=== PATIENT | female | born 1945 | race Caucasian/White ===

== ENCOUNTER 2020-12-28 20:35 | Emergency (ER) | payer MEDICARE, BC ==
[2020-12-28] MEDS ORDERED: Acetaminophen 325 MG Tab PO ONE (22:07)
[2020-12-28] MEDS ORDERED: Ondansetron 4 MG Tab.DIS PO ONE (22:07)
--- NOTE | 2020-12-28 23:36 | EDM.PDOC ---
ED HPI GENERAL MEDICAL PROBLEM - General Chief Complaint: Upper Extremity Injury/Pain Stated Complaint: HEAD INJURY Time Seen by Provider: 12/28/20 21:53 Source of Information: Reports: Patient, RN Notes Reviewed - History of Present Illness INITIAL COMMENTS - FREE TEXT/NARRATIVE: 75 yr old female lost her balance walking down some bleacher. Fell backward hitting head on hard ground. Husbands states she was "unresponsive for several minutes after fall" Had fairly severe L shoulder pain initially but that is now better. Still does have moderate Wise. Mild nausea, no vomiting. Mild neck discomfort. No back or chest discomfort. Left Shoulder Pain Score (Numeric/FACES): 10 Occipital Head Pain Score (Numeric/FACES): 9 - Related Data Allergies Allergy/AdvReac Type Severity Reaction Status Date / Time codeine Allergy Vomiting Verified 12/28/20 20:53 Home Meds: Home Meds Gabapentin [Neurontin] 600 mg PO BID 12/28/20 [History] Levothyroxine 75 mcg PO DAILY 12/28/20 [History] Metoprolol Tartrate [Lopressor] 25 mg PO Q12HR 12/28/20 [History] Past Medical History Cardiovascular History: Reports: Bypass, High Cholesterol, Hypertension Psychiatric History: Reports: Depression Endocrine/Metabolic History: Reports: Diabetes, Type II, Hypothyroidism, Obesity/BMI 30+, Vitamin D Deficiency Social & Family History - Tobacco Use Tobacco Use Status *Q: Never Tobacco User - Caffeine Use Caffeine Use: Reports: Coffee - Recreational Drug Use Recreational Drug Use: No Review of Systems - Review of Systems Review Of Systems: See Below Constitutional: Reports: No Symptoms Eyes: Reports: No Symptoms Ears: Reports: No Symptoms Nose: Reports: No Symptoms Mouth/Throat: Reports: No Symptoms Respiratory: Denies: Shortness of Breath Cardiovascular: Denies: Chest Pain Musculoskeletal: Reports: Neck Pain (mild), Shoulder Pain. Denies: Back Pain, Leg Pain Skin: Reports: No Symptoms ED EXAM, GENERAL - Physical Exam Exam: See Below General Appearance: Alert, Mild Distress Eye Exam: Bilateral Eye: PERRL Ears: Normal External Exam Nose: Normal Inspection Throat/Mouth: Normal Inspection Head: Atraumatic Neck: Supple, Tender Midline (mild) Cardiovascular: Regular Rate, Rhythm GI/Abdominal: Soft, Non-Tender Extremities: Other (Mild tenderness L ant shoulder, no swelling, no visible deformity) Neurological: Alert, Oriented, No Motor/Sensory Deficits Skin Exam: Warm, Dry, Normal Color Course - Vital Signs Last Recorded V/S: Last Vital Signs Temp 97.4 F 12/28/20 20:43 Pulse 75 12/28/20 20:43 Resp 16 12/28/20 20:43 BP 152/67 H 12/28/20 20:43 Pulse Ox 93 L 12/28/20 20:43 - Orders/Labs/Meds Orders: Active Orders 24 hr Category Date Time Status Cervical Spine wo Cont [CT] Stat Exams 12/28/20 22:06 Taken Head wo Cont [CT] Stat Exams 12/28/20 22:06 Taken Shoulder Comp Lt [CR] Stat Exams 12/28/20 22:07 Taken Meds: Medications Discontinued Medications Generic Name Dose Route Start Last Admin Trade Name Bharathi PRN Reason Stop Dose Admin Acetaminophen 975 mg 12/28/20 22:07 12/28/20 23:05 Acetaminophen 325 Mg Tab PO 12/28/20 22:08 975 mg NOW ONE Administration Ondansetron HCl 4 mg 12/28/20 22:07 12/28/20 22:19 Ondansetron 4 Mg Tab.Dis PO 12/28/20 22:08 4 mg ONETIME ONE Administration - Re-Assessments/Exams Free Text/Narrative Re-Assessment/Exam: 12/29/20 01:54 CT of head and neck normal, L shoulder no fx Departure - Departure Time of Disposition: 23:34 Disposition: Home, Self-Care 01 Condition: Fair Clinical Impression: Fall, Head concussion - Discharge Information Instructions: Concussion, Adult, [id number] Referrals: PCP,Not In Area [Primary Care Provider] - Forms: ED Department Discharge Additional Instructions: The treatment of concussion is rest and time. Physical rest and brain rest are both important. Avoid exertional activity for about 1 week. Tylenol q 6 to 8 hr as needed. Call or return to ED as needed if symptoms worsening in any way. Sepsis Event Note (ED) - Evaluation Sepsis Screening Result: No Definite Risk - Focused Exam Vital Signs: Vital Signs Temp Pulse Resp BP Pulse Ox 12/28/20 20:43 97.4 F 75 16 152/67 H 93 L - My Orders Last 24 Hours: My Active Orders 12/28/20 22:06 Cervical Spine wo Cont [CT] Stat Head wo Cont [CT] Stat 12/28/20 22:07 Shoulder Comp Lt [CR] Stat - Assessment/Plan Last 24 Hours: My Active Orders 12/28/20 22:06 Cervical Spine wo Cont [CT] Stat Head wo Cont [CT] Stat 12/28/20 22:07 Shoulder Comp Lt [CR] Stat
--- NOTE | 2020-12-29 06:48 | CR ---
Left shoulder: 3 views of the left shoulder were obtained. Comparison: No prior shoulder study is available. Sternotomy wires are noted. Left shoulder prosthesis is seen. Minimal calcification is noted off the humerus. No acute fracture or other abnormality is appreciated. Impression: 1. Left shoulder prosthesis and sternal wires. 2. Old calcification off the humerus Diagnostic code #2
--- NOTE | 2020-12-29 07:32 | CT ---
CT cervical spine Technique: Multiple axial sections were obtained from above C1 inferiorly to the bottom of T2. Reconstructed coronal and sagittal images were obtained. Comparison: No prior cervical spine imaging is available. Findings: Vertebral body heights and disc spaces are fairly well preserved. Mild degenerative apophyseal change is scattered throughout the cervical spine. Calcification is noted within the transverse ligament posterior to C2. Mild degenerative change is noted between the dens and anterior arch of C1. Anterior osteophytes are noted at C2-3. Vertebral artery calcification is noted. No bony central or bony neural foraminal stenosis is seen. Visualized lung apices are clear. No acute fracture or subluxation is appreciated. Impression: 1. Mild degenerative change as noted above. 2. No acute fracture or abnormal subluxation is seen on CT study of the cervical spine. Diagnostic code #2 I agree with preliminary report from [facility], finalized on 12/29/20, 12:15 AM CDT, code 1
--- NOTE | 2020-12-29 07:39 | CT ---
Head CT Technique: Multiple axial sections through the brain were obtained. Intravenous contrast was not utilized. Reconstructed coronal and sagittal images were obtained. Comparison: No prior intracranial imaging is available. Findings: Ventricles along with basal cisterns and sulci over the convexities are mildly prominent. 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 No other abnormal parenchymal densities are seen. No evidence of intracranial hemorrhage. No midline shift or mass-effect is seen. Atherosclerotic calcification is seen within the vertebral vessels and carotid siphon. Visualized mastoid sinuses and paranasal sinuses show nothing acute. No acute calvarial abnormality is appreciated. Impression: 1. Mild senescent change as noted above. 2. Nothing acute is appreciated on noncontrast head CT study. Diagnostic code #2 I agree with preliminary report from [facility], finalized on 12/29/20, 12:11 AM CDT, code 1
== END 2020-12-28 23:43 | disposition home or self-care (01) ==
LOC: JD.ED 20:35
DX: S06.0X0A Concussion without loss of consciousness, initial encounter (principal); E11.9 Type 2 diabetes mellitus without complications; E03.9 Hypothyroidism, unspecified; E66.9 Obesity, unspecified; Z68.30 Body mass index [BMI] 30.0-30.9, adult; Z79.899 Other long term (current) drug therapy; Z88.5 Allergy status to narcotic agent; W18.09XA Striking against other object with subsequent fall, initial encounter
CPT/HCPCS: 70450; 72125; 73030; 99284; A9270